=== PATIENT | female | born 2000 | race Two or more races ===

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

== ENCOUNTER 2021-02-18 22:53 | Emergency (ER) | payer SELFPAY ==
[~2021-02-18] VITALS: Ht 157.5 cm; Wt 68.0 kg
[2021-02-19] MEDS ORDERED: FOLIC ACID 1 MG, MULTIPLE VITAMIN 10 ML, MAGNESIUM SULF SDV 50% 8 MEQ, THIAMINE INJ 100... INJ SCH ×5 (01:15)
[2021-02-19] MEDS ORDERED: SODIUM CHLORIDE 0.9% 1,000 ML IV ONE (01:15)
[2021-02-19 02:10] LABS: Potassium 4.1 mmol/L (3.5-5.1)
[2021-02-19 02:15] LABS: Albumin 3.8 g/dL (3.4-5.0); BUN/Creatinine Ratio 15.7; Calcium 8.2 mg/dL (8.5-10.1)
[2021-02-19 02:17] LABS: Bilirubin, Total 0.6 mg/dL (0.2-1.0); Total Protein 7.8 g/dL (6.4-8.2)
[2021-02-19 02:22] LABS: Basophils # (auto) 0 10 ^3/uL (0-0.2); Basophils % (auto) 0.3 % (0.0-2.0); Eosinophils # (auto) 0 10 ^3/uL (0-0.8); Eosinophils % (auto) 0.3 % (0.0-7.0); Hematocrit 42.8 % (36.0-46.0); Hemoglobin 14.8 g/dL (12.2-16.2); Lymphocytes # (auto) 2.2 10 ^3/uL (0.4-5.4); Lymphocytes % (auto) 15.6 % (10.0-50.0); Mean Corpuscular Hemoglobin 28.7 pg (28.0-32.0); Mean Corpuscular Hgb Conc. 34.5 g/dL (32.0-36.0); Mean Corpuscular Volume 83.2 fL (80.0-100.0); Monocytes # (auto) 0.8 10 ^3/uL (0-1.3); Monocytes % (auto) 5.9 % (0.0-12.0); Neutrophils # (auto) 10.8 10 ^3/uL (1.6-8.6); Neutrophils % (auto) 77.9 % (37.0-80.0); Nucleated Red Blood Cells % 0.1 %; Red Blood Cells 5.14 10^6/uL (4.0-5.20); Red Cell Distribution Width 15.5 % (11.8-14.3); White Blood Cell 13.8 10^3/uL (4.4-10.8)
[2021-02-19 02:59] LABS: Amphetamine Screen, Urine NEGATIVE (NEGATIVE); Barbiturate Scree,Urine NEGATIVE (NEGATIVE); Benzodiazephine Screen, Urine NEGATIVE (NEGATIVE); Cannabinoid Screen, Urine POSITIVE (NEGATIVE); Cocaine Screen, Urine NEGATIVE (NEGATIVE); Opiate Scree,Urine NEGATIVE (NEGATIVE); Phencyclidine Screen, Urine NEGATIVE (NEGATIVE)
[2021-02-19 03:28] LABS: Urine Bacteria FEW /hpf (None Seen); Urine Blood Negative /uL (Negative); Urine Specific Gravity 1.007 (1.001-1.035); Urine WBC 2 /hpf (0 - 5)
[2021-02-19 06:00] VITALS: BP 110/56
[2021-02-19] MEDS ORDERED: NITR-87 PO (06:23)
== END 2021-02-19 06:38 | disposition home or self-care (01) ==
LOC: ER 22:53 → EDBD 22:53 → ER 02-19 06:36
DX: F10.129 Alcohol abuse with intoxication, unspecified (principal); R41.82 Altered mental status, unspecified; Y90.8 Blood alcohol level of 240 mg/100 ml or more
CPT/HCPCS: 36415; 80053; 80307; 80320; 81001; 85025; 96361; 96365; 96366; 99285; J3411; J3475; J7030

== ENCOUNTER → 2023-05-26 | Outpatient (CLI) | payer MEDICAID ==
[~2023-05-26] MED LIST: NITR-87 PO
[2023-05-26 16:04] LABS: Basophils # (auto) 0 10 ^3/uL (0-0.2); Basophils % (auto) 0.3 % (0.0-2.0); Eosinophils # (auto) 0.1 10 ^3/uL (0-0.8); Eosinophils % (auto) 0.7 % (0.0-7.0); Hematocrit 36.4 % (36.0-46.0); Hemoglobin 12.9 g/dL (12.2-16.2); Lymphocytes # (auto) 1.7 10 ^3/uL (0.4-5.4); Lymphocytes % (auto) 15.8 % (10.0-50.0); Mean Corpuscular Hgb Conc. 35.3 g/dL (32.0-36.0); Mean Corpuscular Volume 84.9 fL (80.0-100.0); Monocytes # (auto) 0.8 10 ^3/uL (0-1.3); Monocytes % (auto) 7.5 % (0.0-12.0); Neutrophils # (auto) 8.2 10 ^3/uL (1.6-8.6); Neutrophils % (auto) 75.7 % (37.0-80.0); Red Blood Cells 4.29 10^6/uL (4.0-5.20); Red Cell Distribution Width 13.9 % (11.8-14.3); White Blood Cell 10.8 10^3/uL (4.4-10.8)
[2023-05-26 16:29] LABS: Amphetamine Screen, Urine Neg (NEGATIVE); Barbiturate Scree,Urine Neg (NEGATIVE); Benzodiazephine Screen, Urine Neg (NEGATIVE); Cocaine Screen, Urine Neg (NEGATIVE); Opiate Scree,Urine Neg (NEGATIVE); Phencyclidine Screen, Urine Neg (NEGATIVE)
[2023-05-26 16:30] LABS: Cannabinoid Screen, Urine Pos (NEGATIVE)
[2023-05-27 07:07] LABS: RPR Non Reactive (Non Reactive)
[2023-05-27 21:06] LABS: Chlamydia Trachomatis, NAA Negative (Negative); Neisseria gonorrhoeae, NAA Negative (Negative)
== END | disposition home or self-care (01) ==
LOC: LAB 15:18
PROVIDERS: ATTEND Obstetrics & Gynecology
DX: Z34.80 Encounter for supervision of other normal pregnancy, unspecified trimester (principal); Z31.430 Encounter of female for testing for genetic disease carrier status for procreative management; Z3A.00 Weeks of gestation of pregnancy not specified
CPT/HCPCS: 36415; 80307; 83036; 84702; 85025; 86592; 86703; 86762; 86850; 86900; 86901; 87086; 87340

== ENCOUNTER → 2023-09-04 | Outpatient (CLI) | payer MEDICAID | END | disposition home or self-care (01) | LOC: LAB 10:57 | PROVIDERS: ATTEND Obstetrics & Gynecology | DX: Z34.00 Encounter for supervision of normal first pregnancy, unspecified trimester (principal); Z3A.00 Weeks of gestation of pregnancy not specified; Z72.51 High risk heterosexual behavior | CPT/HCPCS: 86703 ==

== ENCOUNTER → 2023-10-06 | Outpatient (CLI) | payer MEDICAID ==
[2023-10-06 14:58] LABS: Basophils # (auto) 0 10 ^3/uL (0-0.2); Eosinophils # (auto) 0.1 10 ^3/uL (0-0.8); Hematocrit 34.4 % (36.0-46.0); Monocytes # (auto) 1.1 10 ^3/uL (0-1.3); Red Blood Cells 4.56 10^6/uL (4.0-5.20)
[2023-10-06 15:00] LABS: Basophils % (auto) 0.5 % (0.0-2.0); Eosinophils % (auto) 0.8 % (0.0-7.0); Hemoglobin 11.5 g/dL (12.2-16.2); Lymphocytes # (auto) 1.4 10 ^3/uL (0.4-5.4); Lymphocytes % (auto) 14.3 % (10.0-50.0); Mean Corpuscular Hemoglobin 25.2 pg (28.0-32.0); Mean Corpuscular Hgb Conc. 33.5 g/dL (32.0-36.0); Mean Corpuscular Volume 75.3 fL (80.0-100.0); Monocytes % (auto) 11.3 % (0.0-12.0); Neutrophils # (auto) 6.9 10 ^3/uL (1.6-8.6); Neutrophils % (auto) 73.1 % (37.0-80.0); Red Cell Distribution Width 15.3 % (11.8-14.3); White Blood Cell 9.5 10^3/uL (4.4-10.8)
[2023-10-07 22:06] LABS: Neisseria gonorrhoeae, NAA Negative (Negative)
[2023-10-07 23:07] LABS: Chlamydia Trachomatis, NAA Positive (Negative)
== END | disposition home or self-care (01) ==
LOC: LAB 14:42
PROVIDERS: ATTEND Obstetrics & Gynecology
DX: Z34.00 Encounter for supervision of normal first pregnancy, unspecified trimester (principal); Z72.51 High risk heterosexual behavior; Z3A.00 Weeks of gestation of pregnancy not specified
CPT/HCPCS: 36415; 85025; 86592

== ENCOUNTER → 2023-10-23 | Outpatient (CLI) | payer MEDICAID ==
[2023-10-24 10:06] LABS: Treponema Pallidum Ab LC Non Reactive (Non Reactive)
[2023-10-26 18:06] LABS: Treponema pallidum Ab (FTA-Ab) Non Reactive (Non Reactive)
== END | disposition home or self-care (01) ==
LOC: LAB 09:39
PROVIDERS: ATTEND Obstetrics & Gynecology
DX: Z34.00 Encounter for supervision of normal first pregnancy, unspecified trimester (principal); Z3A.00 Weeks of gestation of pregnancy not specified
CPT/HCPCS: 84112

== ENCOUNTER 2023-10-30 09:48 | Observation (INO) | payer MEDICAID ==
[2023-10-30] MEDS ORDERED: PREN-96 PO (10:33)
== END 2023-10-30 11:34 | disposition home or self-care (01) ==
LOC: LDRP 09:48 → UNDOADMOB 09:48 → LDRP 09:49
PROVIDERS: ADMIT Obstetrics & Gynecology; ATTEND Obstetrics & Gynecology
DX: O48.0 Post-term pregnancy (principal); O62.9 Abnormality of forces of labor, unspecified; O26.893 Other specified pregnancy related conditions, third trimester; R10.9 Unspecified abdominal pain; Z3A.40 40 weeks gestation of pregnancy
CPT/HCPCS: 59025; 76818; 81002; 94760; G0378

== ENCOUNTER 2023-10-31 20:13 | Inpatient (IN) | payer MEDICAID ==
[~2023-10-31] VITALS: Ht 160 cm; Wt 90.7 kg
[2023-10-31] MEDS: LACT. RINGERS/OXYTOCIN 20UNITS 500 ML IV ONE ×2 (04:00→04:20)
[~2023-10-31 20:13] MED LIST changes: +PREN-96 PO
[2023-10-31] MEDS ORDERED: BUTORPHANOL TARTRATE 2 MG/1 ML VIAL IV PRN ×2 (20:45)
[2023-10-31] MEDS ORDERED: LIDOCAINE 2%HCL (LOCAL ANESTH.) INJ 20ML MDV IJ PRN (20:45)
[2023-10-31 21:33] LABS: Basophils # (auto) 0.1 10 ^3/uL (0-0.2); Eosinophils # (auto) 0 10 ^3/uL (0-0.8); Eosinophils % (auto) 0.3 % (0.0-7.0); Hemoglobin 11.9 g/dL (12.2-16.2); Mean Corpuscular Volume 72.8 fL (80.0-100.0); Monocytes # (auto) 1.2 10 ^3/uL (0-1.3); Nucleated Red Blood Cells % 0.1 %
[2023-10-31 21:34] LABS: Basophils % (auto) 0.5 % (0.0-2.0); Hematocrit 36.8 % (36.0-46.0); Lymphocytes # (auto) 1.4 10 ^3/uL (0.4-5.4); Lymphocytes % (auto) 10.2 % (10.0-50.0); Mean Corpuscular Hemoglobin 23.6 pg (28.0-32.0); Mean Corpuscular Hgb Conc. 32.4 g/dL (32.0-36.0); Monocytes % (auto) 8.8 % (0.0-12.0); Neutrophils # (auto) 10.9 10 ^3/uL (1.6-8.6); Neutrophils % (auto) 80.2 % (37.0-80.0); Red Blood Cells 5.05 10^6/uL (4.0-5.20); Red Cell Distribution Width 16.1 % (11.8-14.3); White Blood Cell 13.6 10^3/uL (4.4-10.8)
[2023-10-31 21:37] LABS: Urine Bacteria FEW /hpf (None Seen); Urine Blood Negative /uL (Negative); Urine Clarity HAZY (Clear); Urine Color Yellow (Yellow); Urine Mucus FEW (None Seen); Urine Protein, UAD TRACE (Negative); Urine Specific Gravity 1.017 (1.001-1.035); Urine WBC 26 /hpf (0 - 5)
[2023-10-31 21:47] LABS: Alanine Aminotransferase 14 U/L (7-40); Albumin 4.1 g/dL (3.2-4.8); Alkaline Phosphatase 285 U/L (46-116); Anion Gap 8 (5-15); Aspartate Aminotransferase 13 U/L (13-40); BUN/Creatinine Ratio 8.8 (10.0-20.0); Bilirubin, Total 0.7 mg/dL (0.2-1.0); Blood Urea Nitrogen < 5 mg/dL (9-23); Calcium 9.4 mg/dL (8.5-10.1); Carbon Dioxide 25 mmol/L (20-30); Chloride 105 mmol/L (98-107); Glucose 85 mg/dL (74-106); Potassium 3.7 mmol/L (3.5-5.1); Sodium 138 mmol/L (136-145)
[2023-10-31 21:48] LABS: INR 0.97 (0.9-1.15); Partial Thromboplastin Time 29.9 SEC (24.5-34.5); Prothrombin Time 10.2 sec (9.3-11.8); Total Protein 7.4 g/dL (5.7-8.2)
[2023-10-31 21:53] LABS: Amphetamine Screen, Urine Neg (NEGATIVE); Barbiturate Scree,Urine Neg (NEGATIVE); Cocaine Screen, Urine Neg (NEGATIVE)
[2023-10-31 21:54] LABS: Benzodiazephine Screen, Urine Neg (NEGATIVE); Cannabinoid Screen, Urine Neg (NEGATIVE); Opiate Scree,Urine Neg (NEGATIVE); Phencyclidine Screen, Urine Neg (NEGATIVE)
[2023-10-31] MEDS: LACTATED RINGER'S 1,000 ML IV SCH (22:26)
[2023-10-31] MEDS ORDERED: ePHEDrine SULFATE 50 MG/ML AMP IV ONE (22:30)
[2023-10-31] MEDS ORDERED: NALOXONE HCL 0.4 MG/ML VIAL IV ONE (22:30)
[2023-10-31] MEDS: LACTATED RINGER'S 1,000 ML IV ONE (23:16)
[2023-11-01] MEDS: ROPIVACAINE HCL 200 ML ONE (01:01)
[2023-11-01] MEDS ORDERED: GENTAMICIN SULFATE 80 MG in D5W 5% 100 ML IV ONE (04:15)
[2023-11-01] MEDS ORDERED: GENTAMICIN SULFATE 260 MG in D5W 5% 100 ML IV ONE (04:30)
[2023-11-01] MEDS ORDERED: GENTAMICIN PER PHARMACY 0 ML IV SCH (04:45)
[2023-11-01] MEDS: SODIUM CHL 0.9% IV ONE (04:52)
[2023-11-01] MEDS: GENTAMICIN SULFATE IV ONE (04:52)
[2023-11-01] MEDS ORDERED: ACETAMINOPHEN 325 MG TAB PO PRN (05:15)
[2023-11-01] MEDS ORDERED: ONDANSETRON ODT 4 MG TAB PO PRN (05:15)
[2023-11-01] MEDS: IBUPROFEN 600 MG TAB PO PRN (05:17)
[2023-11-01] MEDS: GENTAMICIN SULFATE 2 ML ONE (06:00)
[2023-11-01] MEDS: AMPICILLIN SOD 1 GM VL ONE (06:00)
[2023-11-01] MEDS: NALOXONE HCL 0.4 MG/ML VIAL ONE (06:00)
[2023-11-01] MEDS: ePHEDrine SULFATE 50 MG/ML AMP ONE (06:00)
[2023-11-01 06:06] LABS: Eosinophils # (auto) 0 10 ^3/uL (0-0.8); Hemoglobin 10.3 g/dL (12.2-16.2); Red Cell Distribution Width 16.3 % (11.8-14.3)
[2023-11-01 06:10] LABS: Basophils # (auto) 0.1 10 ^3/uL (0-0.2); Basophils % (auto) 0.3 % (0.0-2.0); Hematocrit 30.9 % (36.0-46.0); Lymphocytes # (auto) 1.1 10 ^3/uL (0.4-5.4); Lymphocytes % (auto) 5.9 % (10.0-50.0); Mean Corpuscular Hemoglobin 24.3 pg (28.0-32.0); Mean Corpuscular Hgb Conc. 33.3 g/dL (32.0-36.0); Mean Corpuscular Volume 72.8 fL (80.0-100.0); Monocytes # (auto) 1.5 10 ^3/uL (0-1.3); Monocytes % (auto) 8.3 % (0.0-12.0); Neutrophils # (auto) 15.3 10 ^3/uL (1.6-8.6); Neutrophils % (auto) 85.5 % (37.0-80.0); Red Blood Cells 4.24 10^6/uL (4.0-5.20); White Blood Cell 17.9 10^3/uL (4.4-10.8)
[2023-11-01] MEDS: AMPICILLIN SOD 2GM INJ 2 GM in SODIUM CHL 0.9% 100 ML IV ONE (06:25)
[2023-11-01 06:53] VITALS: BP 103/56; PULSE 113; RESP 18; TEMP 98.8; O2SAT 95
[2023-11-01 11:00] VITALS: BP 103/55; PULSE 85; RESP 18; TEMP 98.2; O2SAT 98
[2023-11-01] MEDS: GENTAMICIN SULFATE 260 MG in D5W 5% 100 ML IV SCH (13:54)
[2023-11-01] MEDS: PHISODERM TOP SOLN 240ML BTL TOP PRN (14:55)
[2023-11-01] MEDS: DERMOPLAST 60ML BOTTLE TOP PRN (14:55)
[2023-11-01] MEDS: WITCH HAZEL-GLYCERIN PAD TOP PRN (14:55)
[2023-11-01 15:21] VITALS: BP 124/77; PULSE 98; RESP 18; TEMP 97.7; O2SAT 97
[2023-11-01] MEDS ORDERED: AMPICILLIN INJ 1 GM in SODIUM CHL 0.9% 100 ML IV SCH (16:30)
[2023-11-01] MEDS ORDERED: DOCUSATE SOD 100 MG CAP PO SCH (22:00)
[2023-11-04 05:08] LABS: RPR Non Reactive (Non Reactive)
[2023-11-04 19:06] LABS: Treponema pallidum Ab (FTA-Ab) Non Reactive (Non Reactive)
== END 2023-11-01 15:55 | disposition left against medical advice (07) | DRG 560 ==
LOC: UNDOADMOB 20:13 → LDRP 20:13 → INTOOBSV 20:42 → OBSVTOIN 20:42 → LDRP 20:50 → OBSVTOIN 20:50 → LDRP 21:36
PROVIDERS: ADMIT Obstetrics & Gynecology; ATTEND Obstetrics & Gynecology
PROC: 0KQM0ZZ Repair Perineum Muscle, Open Approach (ICD-10-PCS; principal; 2023-11-01)
PROC: 10D07Z6 Extraction of Products of Conception, Vacuum, Via Natural or Artificial Opening (ICD-10-PCS; 2023-11-01)
PROC: 0W8NXZZ Division of Female Perineum, External Approach (ICD-10-PCS; 2023-11-01)
PROC: 3E0R3BZ Introduction of Anesthetic Agent into Spinal Canal, Percutaneous Approach (ICD-10-PCS; 2023-11-01)
PROC: 00HU33Z Insertion of Infusion Device into Spinal Canal, Percutaneous Approach (ICD-10-PCS; 2023-11-01)
DX: O70.1 Second degree perineal laceration during delivery (principal); Z37.0 Single live birth; O41.1230 Chorioamnionitis, third trimester, not applicable or unspecified; R71.0 Precipitous drop in hematocrit; Z3A.40 40 weeks gestation of pregnancy; Z53.29 Procedure and treatment not carried out because of patient's decision for other reasons
CPT/HCPCS: 36415; 59025; 59409; 80053; 80307; 81001; 81002; 85025; 85610; 85730; 86592; 86803; 86850; 86900; 86901; 87040; 94760; 96360; 96361; 96365; 96366; G0378; J2590; J7060

== ENCOUNTER 2024-05-16 15:01 | Emergency (ER) | payer MEDICAID, OTHER ==
[~2024-05-16] VITALS: Ht 157.5 cm; Wt 90.0 kg
[2024-05-16 18:00] VITALS: BP 117/75; PULSE 68; RESP 18; TEMP 98; O2SAT 98
[2024-05-16] MEDS ORDERED: IBUP-1455 PO (18:24)
== END 2024-05-16 18:51 | disposition home or self-care (01) ==
LOC: ER 15:05
DX: S86.812A Strain of other muscle(s) and tendon(s) at lower leg level, left leg, initial encounter (principal); F10.90 Alcohol use, unspecified, uncomplicated; Z79.899 Other long term (current) drug therapy; X58.XXXA Exposure to other specified factors, initial encounter; Y93.89 Activity, other specified; Y92.89 Other specified places as the place of occurrence of the external cause; Y99.0 Civilian activity done for income or pay; Y90.0 Blood alcohol level of less than 20 mg/100 ml
CPT/HCPCS: 73562